=== PATIENT | male | born 1995 | race American Indian/Alaskan Native ===

== ENCOUNTER 2017-07-02 23:08 | Emergency (ER) | payer OTHER ==
[2017-07-02 23:12] VITALS: RESP 18; TEMP 98.7
[2017-07-02] MEDS ORDERED: Sodium Chloride 0.9% 1,000 ML IV STA (23:33)
--- NOTE | 2017-07-02 23:45 | ED PDOC ---
HPI: Abdomen Time Seen by Provider: 07/02/17 23:23 Chief Complaint (Nursing): Flu-like Symptoms Chief Complaint (Provider): Abdominal Pain History Per: Patient History/Exam Limitations: no limitations Onset/Duration Of Symptoms: Hrs (x8.5 hours) Outside of [place] travel?: No Associated Symptoms: Chills, Nausea, Vomiting. denies: Fever, Constipation, Urinary Symptoms Additional Complaint(s): 22 year old male presents to ED with complaints of abdominal pain x8.5 hours and has no past medical history. (+) chills, nausea, and vomiting. (-) fever, constipation, diarrhea, or urinary symptoms. Patient notes that he saw some blood in his vomit. [place]CP: [place] of state Past Medical History Reviewed: Historical Data, Nursing Documentation, Vital Signs Vital Signs: Last Vital Signs Temp 98.7 F 07/02/17 23:10 Pulse 86 07/03/17 00:58 Resp 18 07/03/17 00:58 BP 102/42 L 07/03/17 00:58 Pulse Ox 98 07/03/17 01:04 - Medical History PMH: No Chronic Diseases - Surgical History Surgical History: No Surg Hx - Family History Family History: States: Unknown Family Hx - Living Arrangements Living Arrangements: With Friends/Others ([employer]) - Allergies Allergies/Adverse Reactions: Allergies Allergy/AdvReac Type Severity Reaction Status Date / Time No Known Allergies Allergy Verified 07/02/17 23:10 Review of Systems ROS Statement: Except As Marked, All Systems Reviewed And Found Negative Constitutional: Positive for: Chills. Negative for: Fever Gastrointestinal: Positive for: Nausea, Vomiting, Abdominal Pain. Negative for : Diarrhea, Constipation Genitourinary Male: Negative for: Dysuria, Frequency, Incontinence, Hematuria Physical Exam - Reviewed Nursing Documentation Reviewed: Yes Vital Signs Reviewed: Yes - Physical Exam Appears: Positive for: Non-toxic, Uncomfortable (mild painful distress) Skin: Positive for: Normal Color, Warm, Dry Cardiovascular/Chest: Positive for: Regular Rate, Rhythm. Negative for: Murmur Respiratory: Positive for: Normal Breath Sounds. Negative for: Respiratory Distress Gastrointestinal/Abdominal: Positive for: Soft, Tenderness (LUQ and LLQ tenderness). Negative for: Normal Exam Extremity: Positive for: Normal ROM. Negative for: Deformity Neurologic/Psych: Positive for: Alert, Oriented. Negative for: Motor/Sensory Deficits - Laboratory Results Result Diagrams: 07/02/17 23:52 07/02/17 23:52 - ECG O2 Sat by Pulse Oximetry: 98 (RA) Pulse Ox Interpretation: Normal Medical Decision Making Medical Decision Makin Initial impression: enteritis, diverticulitis, UTI, pyelonephritis Initial plan: * CTA A/P * Labs * UDip * Morphine 2mg IV * NS IV * Zofran Inj 4mg IV * Influenza AB * UA * Re-eval 0000 Patient will be signed out to Dr. Stafford pending ED work up. Scribe Attestation: Documented by Danni Ford acting as a scribe Kellie Guzman MD. Scribe Attestation: All medical record entries made by the Scribe were at my direction and personally dictated by me. I have reviewed the chart and agree that the record accurately reflects my personal performance of the history, physical exam, medical decision making, and the department course for this patient. I have also personally directed, reviewed, and agree with the discharge instructions and disposition. Disposition - Clinical Impression Clinical Impression: Vomiting - Patient ED Disposition Is Patient to be Admitted: Transfer of Care - Disposition Referrals: [facility] [Outside] [facility] [Outside] Disposition: Transfer of Care Disposition Time: 00:00 Condition: IMPROVED Additional Instructions: follow up with your primary doctor in 1-2 days return to the ED with any worsening or concerning symptoms Instructions: Nausea and Vomiting, Adult (DC) Forms: [employer] (Macedonian) Patient Signed Over To: Malik Stafford Handoff Comments: pending ED work up
[2017-07-02 23:55] LABS: BASO % 0.1 % (0.0-2.0); EOS % 0.1 % (0.0-4.0); HEMOGLOBIN 15.1 g/dL (12.0-18.0); LYMPH # 0.3 K/uL (1.0-4.3); LYMPH % 1.9 % (20.0-40.0); MEAN CELL VOLUME 95.8 fl (80.0-94.0); MEAN CORPUSCULAR HEMOGLOBIN 32.8 pg (27.0-31.0); MEAN CORPUSCULAR HGB CONC 34.2 g/dL (33.0-37.0); MEAN PLATELET VOLUME 8.3 fl (7.2-11.7); MONO % 6.6 % (0.0-10.0); NEUT # 14.3 K/uL (1.8-7.0); NEUT % 91.3 % (50.0-75.0); PLATELET COUNT 291 K/uL (130-400); RBC 4.61 Mil/uL (4.40-5.90); RED CELL DISTRIBUTION WIDTH 13.3 % (11.5-14.5); WHITE BLOOD COUNT 15.7 K/uL (4.8-10.8)
[2017-07-03 00:01] LABS: URINE BILIRUBIN SMALL (NEGATIVE); URINE BLOOD NEGATIVE (NEGATIVE); URINE CLARITY CLOUDY (Clear); URINE COLOR AMBER (YELLOW); URINE GLUCOSE (UA) NEG (Normal); URINE LEUKOCYTE ESTERASE NEG Leu/uL (Negative); URINE PROTEIN 100 mg/dL (NEGATIVE)
[2017-07-03 00:05] LABS: ALB/GLOB RATIO 1.4 (1.0-2.1); ALBUMIN 4.9 g/dL (3.5-5.0); ALT/SGPT 35 U/L (21-72); AST/SGOT 28 U/L (17-59); BLOOD UREA NITROGEN 17 mg/dl (9-20); CALCIUM 9.9 mg/dL (8.4-10.2); GFR AFRICAN-AMERICAN > 60; GFR NON-AFRICAN AMERICAN > 60
[2017-07-03] MEDS ORDERED: Sodium Chloride 0.9% 100 ML ONE (00:11)
[2017-07-03] MEDS ORDERED: Iohexol 300 100 ML IJ ONE (00:11)
--- NOTE | 2017-07-03 00:16 | ED PDOC ---
- Laboratory Results Result Diagrams: 07/02/17 23:52 07/02/17 23:52 - ECG O2 Sat by Pulse Oximetry: 98 (RA) Medical Decision Making Medical Decision Makin Patient signed out to provider from Dr. Guzman pending ED work up. Patient will be PO challenged. 0050 CTA A/P FINDINGS: Lower thorax: A small hiatal hernia is present. There is fluid in the distal esophagus which may suggest gastroesophageal reflux. ABDOMEN: Liver: Unremarkable. No mass. Gallbladder and bile ducts: Unremarkable. No calcified stones. No ductal dilation. Pancreas: Unremarkable. No mass. No ductal dilation. Spleen: Unremarkable. No splenomegaly. Adrenals: Unremarkable. No mass. Kidneys and ureters: Unremarkable. No solid mass. No hydronephrosis. Stomach and bowel: There are mildly prominent fluid filled loops of small bowel in the lower abdomen and pelvis could be secondary to ileus. No bowel obstruction. There is no wall thickening or pericolonic stranding to suggest colitis. Appendix: A normal appendix is identified. PELVIS: Bladder: Unremarkable. No mass. Reproductive: Unremarkable as visualized. ABDOMEN and PELVIS: Intraperitoneal space: Unremarkable. No free air. No significant fluid collection. Bones/joints: No acute fracture. No dislocation. Soft tissues: Unremarkable. Vasculature: Unremarkable. No abdominal aortic aneurysm. Lymph nodes: Unremarkable. No enlarged lymph nodes. IMPRESSION: Possible mild ileus. No bowel obstruction. Small hiatal hernia. Possible gastroesophageal reflux. No acute colitis or obstructive uropathy. Upon re-evaluation, patient is PO tolerant. Labs reviewed: no clinically significant abnormalities. Flu: negative Patient is stable for discharge home. discussed results of CT w patient. Patient advised to follow up with PCP in 1-2 days. Advised hydration and rest. Return precautions given. Scribe Attestation: Documented by Danni Ford acting as a scribe for Malik Stafford MD. Scribe Attestation: All medical record entries made by the Scribe were at my direction and personally dictated by me. I have reviewed the chart and agree that the record accurately reflects my personal performance of the history, physical exam, medical decision making, and the department course for this patient. I have also personally directed, reviewed, and agree with the discharge instructions and disposition. Disposition Counseled Patient/Family Regarding: Studies Performed, Diagnosis, Need For Followup - Clinical Impression Clinical Impression: Vomiting - POA Present On Arrival: None - Disposition Referrals: [facility] [Outside] [facility] [Outside] Disposition: Routine/Home Disposition Time: 00:20 Condition: IMPROVED Additional Instructions: follow up with your primary doctor in 1-2 days return to the ED with any worsening or concerning symptoms Instructions: Nausea and Vomiting, Adult (DC) Forms: [employer] (Khmer)
--- NOTE | 2017-07-03 00:45 | CT ---
EXAM: CT Abdomen and Pelvis With Intravenous Contrast CLINICAL HISTORY: 22 years old, male; Pain; Abdominal pain; Localized; Left; Additional info: Luq/llq pain TECHNIQUE: Axial computed tomography images of the abdomen and pelvis with intravenous contrast. All CT scans at this facility use one or more dose reduction techniques, viz.: automated exposure control; ma/kV adjustment per patient size (including targeted exams where dose is matched to indication; i.e. head); or iterative reconstruction technique. Coronal and sagittal reformatted images were created and reviewed. CONTRAST: 95 mL of [id number] administered intravenously. COMPARISON: No relevant prior studies available. FINDINGS: Lower thorax: A small hiatal hernia is present. There is fluid in the distal esophagus which may suggest gastroesophageal reflux. ABDOMEN: Liver: Unremarkable. No mass. Gallbladder and bile ducts: Unremarkable. No calcified stones. No ductal dilation. Pancreas: Unremarkable. No mass. No ductal dilation. Spleen: Unremarkable. No splenomegaly. Adrenals: Unremarkable. No mass. Kidneys and ureters: Unremarkable. No solid mass. No hydronephrosis. Stomach and bowel: There are mildly prominent fluid filled loops of small bowel in the lower abdomen and pelvis could be secondary to ileus. No bowel obstruction. There is no wall thickening or pericolonic stranding to suggest colitis. Appendix: A normal appendix is identified. PELVIS: Bladder: Unremarkable. No mass. Reproductive: Unremarkable as visualized. ABDOMEN and PELVIS: Intraperitoneal space: Unremarkable. No free air. No significant fluid collection. Bones/joints: No acute fracture. No dislocation. Soft tissues: Unremarkable. Vasculature: Unremarkable. No abdominal aortic aneurysm. Lymph nodes: Unremarkable. No enlarged lymph nodes. IMPRESSION: Possible mild ileus. No bowel obstruction. Small hiatal hernia. Possible gastroesophageal reflux. No acute colitis or obstructive uropathy.
[2017-07-03 00:59] VITALS: BP 102/42; PULSE 86
[2017-07-03 01:05] VITALS: O2SAT 98
[2017-07-03 04:11] LABS: BANDS 1 % (0-2); LYMPHOCYTE 5 % (20-50); NEUTROPHIL 89 % (42-75); TOTAL CELLS COUNTED 100
[2017-07-03 04:12] LABS: MONOCYTE 5 % (0-10); PLATELET ESTIMATE NORMAL (NORMAL)
== END 2017-07-03 01:09 | disposition home or self-care (01) ==
LOC: H.ER 23:08
DX: R11.10 Vomiting, unspecified (principal); K44.9 Diaphragmatic hernia without obstruction or gangrene
CPT/HCPCS: 74177; 80053; 81003; 85025; 87804; 96360; 99283; J2270; J2405; J7040; Q9967